=== PATIENT | male | born 1940 | race Caucasian/White ===

== ENCOUNTER 2016-09-15 08:04 | Inpatient (IN) ==
[2016-09-15] MEDS ORDERED: SODIUM CHLORIDE 0.9% 500 ML IV STA (09:11)
[2016-09-15] MEDS ORDERED: ONDANSETRON 4 MG/2 ML VIAL IV STA (09:11)
[2016-09-15 09:21] LABS: Basophils % 0.5 % (0.0-0.8); Eosinophils # 0.1 10*3/uL (0.0-0.87); Eosinophils % 1.6 % (0.00-10.9); Hematocrit 42.2 VOL% (42.0-52.0); Hemoglobin 13.8 GM/DL (14.0-18.0); Immature Granulocytes % 0.9 %; Immature Granulocytes Absolute 0.07 #; Lymphocytes # 1.1 10*3/uL (1.4-4.0); Lymphocytes % 14.2 % (21.2-54.2); Mean Corpuscular HGB Conc 32.7 GM/DL (32-36); Mean Corpuscular Hemoglobin 30 PG (27-34); Mean Corpuscular Volume 92.3 FL (87-102); Mean Platelet Volume 12.1 FL (9.6-12.0); Monocytes # 0.9 10*3/uL (0.11-0.8); Neutrophils # 5.6 10*3/uL (1.4-7.4); Neutrophils % 71.8 % (38.7-73.9); Platelet Count 137 T/CUMM (130-400); Red Blood Count 4.57 MC/CUMM (3.8-5.5); Red Cell Distribution Width 13.9 % (9.3-17.3); White Blood Count 7.7 T/CUMM (4-12)
--- NOTE | 2016-09-15 09:31 | XRay Report ---
Exam: XR chest 1V portable Date: 09/15/2016 9:12 AM Indication: Abdominal pain Comparison: 03/05/2013 Findings:: Mild cardiac prominence with sternotomy wires. ASVD is present. Underlying mild interstitial thickening present. No obvious effusions with a few reticular nodular densities. No pneumothorax Impression: 1. Interval sternotomy with compared to previous examination X line 2. Underlying COPD with mild fibrotic scarring and a few reticular nodular densities PROCEDURE INTERPRETED AT [facility] DEPARTMENT OF RADIOLOGY Final Report Signed by: Dr. Tian Gamino
[2016-09-15 09:32] LABS: Albumin 3.6 G/DL (3.4-5.0); Bilirubin,Total 1.7 MG/DL (0.2-1.0); Calcium 8.8 MG/DL (8.5-10.1); Magnesium 2.2 MG/DL (1.8-2.4); Osmolality,Calculated 290.5 MOS/KG (273-304); Potassium 4.3 MMOL/L (3.5-5.1); Total Protein 7.8 G/DL (6.4-8.3)
--- NOTE | 2016-09-15 09:34 | CT Report ---
CT abdomen pelvis Indication: Abdominal pain, pelvic pain Comparison: None available Technique: Axial CT imaging of the abdomen and pelvis is performed without contrast. Findings: Cardiac and lung bases are within normal limits CT abdomen: The gallbladder is been removed. There is Increased density in the left lobe of the liver not present on the previous exam with distal dilated biliary ducts. The size is estimated 1.7 cm although detail limited without contrast. Spleen pancreas and adrenal glands are normal in size and density. No evidence of focal lesion is demonstrated in these solid organs. Right kidney is better removed. A left kidney appears within normal limits of size. There is a calculus in the upper pole similar to previous exam.. No other evidence of hydronephrosis or nephrolithiasis is seen. The bowel caliber is normal and no wall thickening or adjacent inflammatory change is seen. No evidence of free fluid or free air is present. There is a ventral abdominal wall hernia that contains of nonobstructed loop of small bowel hernia size is slightly increased from previous exam, hernia size is slightly increased from previous study. CT pelvis: The bowel and bladder appear within normal limits. The pelvic organs show no evidence of abnormality Impression: Area of increased density with ill-defined borders in the left lobe of the liver with distal distended biliary ducts not present on previous exam and may indicate malignancy. Detail is limited without contrast but size of hyperdensity is estimated at 1.[address] exam was performed using one or more the following dose reduction techniques: Automated exposure control, adjustment of the MA and/or KV according to patient size, or use of iterative reconstruction technique. PROCEDURE INTERPRETED AT [facility] DEPARTMENT OF RADIOLOGY Final Report Signed by: Dr. Riley Farmer
[2016-09-15] MEDS ORDERED: ONDANSETRON 4 MG/2 ML VIAL ONE ×2 (09:56→11:32)
--- NOTE | 2016-09-15 10:03 | Emergency Department Note ---
Samantha Escalona Hilary, am scribing for, and in the presence of, Nickolas Velasco MD 09:17. Krista Escalona Phillip K, MD, personally performed the services described in this documentation, ascribed by Wilda Singh in my presence, and it is both accurate and complete . Arrival - Arrival Chief Complaint: Abdominal / Flank Pain Stated Complaint: did not state ED Nursing Triage Note: Pt states that he has been having abd pain x 1 month with worsening this am - pt was dx with hernia and had hernia repair surgery years ago - Mode of Arrival: Wheelchair Limitations: No Limitations Source: Patient, RN Notes Reviewed Time Seen by Provider: 09/15/16 09:03 - History of Present Illness HPI Narrative: Pt is a 76 y/o male presenting to the ED with c/o abdominal pain which onset a month ago but worsened this AM. Pt confirms generalized abdominal pain, cough, vomiting, and that the pain worsens with movement but denies fever. Pt states his last BM was yesterday and that he has a small hernia over his navel. Pt has no other complaints or problems stated in the ED. Pt has a PMHx of HTN, Heart surgery, CVA, IDDM, Dyslipidemia, and a hernia repair. Onset (ago): month(s) Allergies/Adverse Reactions: Allergies Allergy/AdvReac Type Severity Reaction Status Date / Time No Known Allergies Allergy Unverified 09/15/16 08:27 Review of System - Review of System 12 point system: reviewed and no additional remarkable complaints except as stated - Review of System Constitutional: Absent: fever Respiratory: Present: cough Cardiovascular: Absent: chest pain Gastrointestinal: Present: abdominal pain, vomiting. Absent: nausea Medical,Surgical,& Family Hx - Medical History Cardio: History of: Hypertension, Cardiovascular Problems (heart surgery) Neurology: History of: Cerebrovascular Accident Endocrine: History of: Diabetes Mellitus (IDDM), Dyslipidemia Gastrointestinal: History of: GI Problems (hernia repair) Other: History of: Miscellaneous Medical Problems (chronic pain) - Social History Smoking Status: Never smoker Frequency of Alcohol Use: None Type of Drug Use: None Exam Vital Signs: Vital Signs Temperature 98.1 F 09/15/16 08:39 Pulse Rate 53 L 09/15/16 09:13 Respiratory Rate 16 09/15/16 09:13 Blood Pressure 147/71 09/15/16 09:13 O2 Sat by Pulse Oximetry 95 09/15/16 09:13 - General General appearance: alert, in no apparent distress - Head Head exam: Present: atraumatic, normocephalic - Eye Eye exam: Present: normal appearance, PERRL, EOMI - ENT ENT exam: Present: mucous membranes moist, TM's normal bilaterally. Absent: mucous membranes dry - Neck Neck exam: Present: full ROM, trachea midline. Absent: tenderness - Chest Chest inspection: Present: symmetric chest wall rise. Absent: tenderness - Respiratory Respiratory exam: Present: normal lung sounds bilaterally. Absent: respiratory distress - Cardiovascular Cardiovascular exam: Present: regular rate, murmur (3/6 systolic ejection murmur ) - Abdominal Exam Abdominal exam: Present: distention, rebound, diminished bowel sounds (No bowel sounds), hernia (ventral hernia, reducable) - Extremities Exam Extremities exam: Present: full ROM. Absent: tenderness - Back Exam Back exam: Present: full ROM. Absent: tenderness - Neurological Exam Neurological exam: Present: alert, oriented X3, CN II-XII intact. Absent: motor sensory deficit - Psychiatric Psychiatric exam: Present: normal affect, normal mood - Skin Skin exam: Present: warm, dry, intact, normal color. Absent: rash Course Course Narrative: Patient discussed with the hospitalist. Results - Labs CBC & BMP: 09/15/16 08:49 09/15/16 08:49 Lab Results: I have reviewed the patients labs Labs: Laboratory Tests 09/15/16 08:49 WBC 7.7 RBC 4.57 Hgb 13.8 L Hct 42.2 MPV 12.1 H Lymph % (Auto) 14.2 L Lymph # (Auto) 1.1 L Andrew # (Auto) 0.9 H Laboratory Tests 09/15/16 08:49 BUN 34 H Creatinine 2.30 H Glucose 212 H Total Bilirubin 1.70 H AST 229 H ALT 219 H Globulin 4.2 H Albumin/Globulin Ratio 0.8 L Laboratory Tests 09/15/16 08:49 Urine Urobilinogen < 2.0 H - EKG EKG results: interpreted by BRENDON, sinus rhythm (nonspecific ST-T changes) - Diagnostic Findings Procedure: Chest x-ray: report reviewed by me (1. Interval sternotomy with compared to previous examination X line. 2. Underlying COPD with mild fibrotic scarring and a few reticular nodular densities. ), CT Abdomen and Pelvis: report reviewed by me (Area of increased density with ill-defined borders in the left lobe of the liver with distal distended biliary ducts not present on previous exam and may indicate malignancy. Detail is limited without contrast but size of hyperdensity is estimated at 1.7 cm. ) Disposition Clinical Impression: Liver mass, left lobe, Elevated liver enzymes, Abdominal pain, ventral hernia reducible, History of renal cell carcinoma Case discussed with: patient, patient's family Disposition: Still a Patient Condition: Guarded Additional Instructions: Admitted to the hospitalist for further workup.
--- NOTE | 2016-09-15 10:03 | EKG Report ---
Stationary ECG Study [facility] ER Test Date: 09/15/2016 10:01:19 AM Pat Name: EKATERINA DELGADO Department: Room: Gender: M Vending Machine Servicer: WANG : 1940 Requested by: Nickolas Blandon Order Number: [id number] Reading MD: CAROLINE SIERRA Intervals [place] Rate: 56 P: -54 VA: 250 QRS: -11 QRSD: 84 T: 86 QT: 422 QTc: 415 Interpretive Statements SINUS RHYTHM WITH PROLONGED VA INTERVAL NONSPECIFIC T-WAVE ABNORMALITY Electronically Signed On 09-19-16 11:50:19 CDT by CAROLINE SIERRA [email or web address]
--- NOTE | 2016-09-15 10:41 | Hospitalist History & Physical ---
Addendum entered and electronically signed by Pierce Davis CNP 09/15/16 11 :18: HPI This is a 76 year old male that presented to the ED this morning with a chief complaint of abdominal pain, nausea and vomiting. He has a rather impressive medical history of renal cell carcinoma, hypertension, coronary artery disease, diabetes mellitus, dyslipidemia, and chronic pain. He has a surgical history of heart surgery, left nephrectomy, and hernia repair. He reports the onset of abdominal pain "a couple of days ago". He reports the start of nausea and vomiting on yesterday. He states"It got worse through the night'. The abdominal pain became almost unbearable this morning, so he sought medical attention. At the time of ED presentation, he was continuing to experience abdominal pain with guarding and tenderness noted upon gentle palpation. CT of the abdomen was obtained and suggest billiary duct dilation and detected the presence of a left lobe liver mass. Labs obtained elevations in liver function with AST of 229, ALT of 219, and Alkaline phosphate of 112. His renal function was impaired with a BUN of 34 and creatinine of 2.30. After brief discussion with both Dr. Velasco and Dr. Gil, the patient will be admitted under the hospitalist services for continuation of care. We will consult GI to evaluate and assist with management. Original Note: <Pierce Davis - Last Filed: 09/15/16 10:56> Assessment and Plan (1) Abdominal pain Status: Acute Assessment and plan: We will admit, empiric antibiotics,gently rehydrate, and control pain. Will consult GI to evaluate. Current Visit: Yes Qualifiers: Abdominal location: unspecified location Qualified Code(s): R10.9 - Unspecified abdominal pain (2) Elevated liver enzymes Status: Acute Assessment and plan: CT of abdomen showed bililary ducts dilation and left lobe liver mass. Will will consult GI to evaluate. Current Visit: Yes (3) Liver mass, left lobe Status: Acute Assessment and plan: CT of abdomen showed bililary ducts dilation and left lobe liver mass. Will will consult GI to evaluate. Current Visit: Yes History of Present Illness Chief complaint: abdominal pain; nausea and vomiting History of present illness: Mr. Carr is a 76 year old male Allergies Allergy/AdvReac Type Severity Reaction Status Date / Time No Known Allergies Allergy Unverified 09/15/16 08:27 Medical,Surgical,& Family Hx - Medical History Cardio: History of: Hypertension, Cardiovascular Problems (heart surgery) Neurology: History of: Cerebrovascular Accident Endocrine: History of: Diabetes Mellitus (IDDM), Dyslipidemia Gastrointestinal: History of: GI Problems (hernia repair) Other: History of: Miscellaneous Medical Problems (chronic pain) - Social History Smoking Status: Never smoker Have you smoked in the last 12 months: No Frequency of Alcohol Use: None Type of Drug Use: None Marital Status: Single Lives With:: Alone Functional capacity: independent ambulation Exam - Constitutional Vitals: Period Temp Pulse Resp BP Sys/Reyes Pulse Ox Last 24 Hr 98.1 F-98.1 F 51-54 16-20 134-152/59-71 94-97 General appearance: normal weight, mild distress - Head Head exam: Present: normal inspection, normocephalic, atraumatic - Eye Eye exam: Present: EOMI, conjunctival injection Pupils: Present: NELY, normal accommodation - ENT ENT exam: Present: normal exam, normal external ear exam, normal oropharynx - Neck Neck exam: Present: normal inspection. Absent: lymphadenopathy, meningismus, tenderness, thyromegaly - Respiratory Respiratory exam: Present: clear to auscultation bilaterally. Absent: rales, rhonchi, stridor, wheezes - Cardiovascular Cardiovascular exam: Present: bradycardia. Absent: carotid bruit, diastolic murmur, gallop, JVD, rubs, systolic murmur - GI/Abdominal GI/Abdominal exam: Present: guarding, hernia, tenderness, rebound - Extremities Exam Extremities exam: Present: normal inspection, normal capillary refill, full ROM. Absent: edema - Back Exam Back exam: Present: normal inspection - Neurological Exam Neurological exam: Present: alert, oriented X3, CN II-XII intact - Psychiatric Psychiatric exam: Present: normal affect, normal mood - Skin Skin exam: Present: normal color, warm, dry Results - Labs CBC & BMP: 09/15/16 08:49 09/15/16 08:49 Lab Results: I have reviewed the past 24 hour labs Quality Measures - VTE Deep Vein Thrombosis/Pulmonary Embolism Present on Admission: No <Ady Gil - Last Filed: 09/15/16 16:32> History of Present Illness History of present illness: Patient seen and examined along with CALLY Davis, todd with history, assessment and plan as documented. Patient also with FRED (unknown baseline), hydrating gently, pt takes bumex outpatient. Also with history of DM, SSI for now. GI consulted, possible liver biopsy tomorrow. Exam - Constitutional Vitals: Period Temp Pulse Resp BP Sys/Reyes Pulse Ox Last 24 Hr 52-59 16-19 159-164/63-94 94-98 Results - Labs CBC & BMP: 09/15/16 08:49 09/15/16 08:49
[2016-09-15 10:49] LABS: Apearance,Urine CLEAR (Clear); Bacteria,Urine Occasional /HPF (Few); Bilirubin,Urine Negative (Negative); Blood, Urine Negative (Negative); Glucose,Urine (UA) 50 mg/dL (Negative); Ketones,Urine Negative (Negative); Nitrite,Urine Negative (Negative); Protein,Urine 100 MG/DL; RBC,Urine 1 /HPF (0-4); Squamous Epithelial Cell,Urine Occasional /HPF (0-10); Urine Color Yellow (Yellow); Urine Specific Gravity 1.011 (1.001-1.035); Urine Urobilinogen < 2.0 EU/DL (0.2-1.0); WBC,Urine 2 /HPF (0-6)
[2016-09-15] MEDS ORDERED: MORPHINE 2 MG/1 ML SYRINGE IV SCH (11:00)
[2016-09-15] MEDS ORDERED: MORPHINE 2 MG/1 ML SYRINGE ONE (11:20)
[2016-09-15] MEDS ORDERED: metroNIDAZOLE 500 MG/100 ML PREMIX IV ONE (11:21)
[2016-09-15] MEDS: ONDANSETRON 4 MG/2 ML VIAL IV SCH ×3 (11:35→22:37)
[2016-09-15] MEDS: metroNIDAZOLE INJ 500 MG in PREMIX 1 EACH IV SCH ×2 (13:48→19:48)
[2016-09-15] MEDS ORDERED: MORPHINE 2 MG/1 ML SYRINGE IM PRN (13:55)
--- NOTE | 2016-09-15 14:03 | Gastrointestinal Consult Note ---
<Cony Estrella - Last Filed: 09/15/16 13:58> Assessment and Plan (1) Liver mass, left lobe Status: Acute Assessment and plan: 09/15-2-3 week history of generalized abdominal pain worsening in severity and last night associated with nausea and vomiting. Findings on CT scan of approximately 1.7 cm density to the left lobe of the liver. Elevated LFTs. Consult interventional radiology for possible liver biopsy tomorrow. Plan an addendum to follow by Dr. Lay. Current Visit: Yes History of Present Illness Chief complaint: Abdominal pain History of present illness: Mr. Carr is a 76 year old male who presented to the hospital with abdominal pain, nausea vomiting. Patient's son is at bedside and provides much of his history due to patient's severity of pain during visit. Patient is reported to have onset of upper abdominal pain over the last 2-3 weeks. The pain has come and gone here recently and was not associated with any other symptoms. The pain was not precipitated by any known factors as well. The pain began to worsen last night and throughout the night became more severe. Patient also had onset of nausea and vomiting since yesterday afternoon with the pain. Patient states he has never had pain like this in the past. He denies any hematemesis or coffee-ground emesis associated with this. He states he had a normal bowel movement on yesterday denying any melena or hematochezia. He has a prior history of heart surgery, left nephrectomy related to renal cell carcinoma and has had a hernia repair in the past. Patient's renal cell carcinoma was several years ago when he did not have any adjuvant therapy following his nephrectomy. Denies any history of smoking or drinking in the past. He denies any recent weight loss, fever, chills, or night sweats. On admission he was found to have mildly elevated LFTs with bilirubin 1.7, AST 229 , ALT 219. He had a CT of the abdomen without contrast that showed increased density with ill-defined borders of the left lobe of the liver with distal distended biliary ducts with limited detail with an estimation of 1.7 cm in size. Also mention of his ventral abdominal wall hernia which contains a nonobstructed loop of small bowel. No other acute findings noted. Home Medications Medication Instructions Recorded Confirmed Type Amlodipine Besylate 10 mg PO DAILY 09/15/16 09/15/16 History Aspirin EC Tab 81 mg PO DAILY 09/15/16 09/15/16 History Atorvastatin Calcium 20 mg PO DAILY 09/15/16 09/15/16 History Bumetanide Tab [Bumex Tab] 1 mg PO DAILY 09/15/16 09/15/16 History Insulin Aspart Prot/Asp 70/30 70 units SUBCUT QPM 09/15/16 09/15/16 History [NovoLOG Mix 70/30] Insulin Aspart Prot/Asp 70/30 80 unit SUBCUT QAM 09/15/16 09/15/16 History [NovoLOG Mix 70/30] Menthol. 25%/Tac 0.025% 1 applic TOP BID PRN 09/15/16 09/15/16 History Metoprolol Tartrate 25 mg PO BID 09/15/16 09/15/16 History Omeprazole [Prilosec] 20 mg PO BIDAC 09/15/16 09/15/16 History Thiamine HCl 100 mg PO DAILY 09/15/16 09/15/16 History Triamcinolone Acetonide 1 applic TOP BID 09/15/16 09/15/16 History [Triamcinolone 0.1% Cream] Allergies Allergy/AdvReac Type Severity Reaction Status Date / Time No Known Allergies Allergy Unverified 09/15/16 08:27 Medical,Surgical,& Family Hx - Medical History Cardio: History of: Hypertension, Cardiovascular Problems (heart surgery) Neurology: History of: Cerebrovascular Accident Endocrine: History of: Diabetes Mellitus (IDDM), Dyslipidemia Gastrointestinal: History of: GI Problems (hernia repair) Other: History of: Miscellaneous Medical Problems (chronic pain) - Social History Smoking Status: Never smoker Frequency of Alcohol Use: None Type of Drug Use: None 12 point system: reviewed and no additional remarkable complaints except as stated - Constitutional Constitutional: Present: as per HPI - EENT Eyes: Present: as per HPI Ears: Present: as per HPI Nose, mouth and throat: Present: as per HPI - Cardiovascular Cardiovascular: Present: as per HPI - Respiratory Respiratory: Present: as per HPI - Gastrointestinal Gastrointestinal: Present: as per HPI, abdominal pain, nausea, vomiting - Genitourinary Genitourinary: Present: as per HPI - Musculoskeletal Musculoskeletal: Present: as per HPI - Neurological Neurological: Present: as per HPI - Psychiatric Psychiatric: Present: as per HPI - Endocrine Endocrine: Present: as per HPI - Hematologic/Lymphatic Hematologic/Lymphatic: Present: as per HPI Exam - Constitutional Vitals: Period Temp Pulse Resp BP Sys/Reyes Pulse Ox Last 24 Hr 52-59 16-19 159-164/63-94 94-98 General appearance: normal weight, no acute distress - Head Head exam: Present: normal inspection, normocephalic - Eye Eye exam: Present: other (Lids and conjunctive are unremarkable). Absent: scleral icterus - ENT ENT exam: Present: normal exam, normal oropharynx - Neck Neck exam: Present: normal inspection - Respiratory Respiratory exam: Present: clear to auscultation bilaterally. Absent: rales, rhonchi, wheezes - Cardiovascular Cardiovascular exam: Present: regular rate and rhythm. Absent: diastolic murmur , JVD, systolic murmur - GI/Abdominal GI/Abdominal exam: Present: hypoactive bowel sounds, tenderness, soft, other ( Ventral hernia). Absent: ascites, distended, mass, organomegaly - Extremities Exam Extremities exam: Present: normal inspection, full ROM - Back Exam Back exam: Present: normal inspection - Neurological Exam Neurological exam: Present: alert, oriented X3 - Psychiatric Psychiatric exam: Present: normal affect, normal mood - Skin Skin exam: Present: normal color, warm, dry Results - Labs CBC & BMP: 09/15/16 08:49 09/15/16 08:49 Lab Results: I have reviewed the past 24 hour labs - Diagnostic Findings Procedure: CT Abdomen and Pelvis: report reviewed by me Quality Measures - VTE Deep Vein Thrombosis/Pulmonary Embolism Present on Admission: No <Manuel Lay - Last Filed: 09/15/16 18:36> History of Present Illness History of present illness: Mr. Carr is a 76 year old male Exam - Constitutional Vitals: Period Temp Pulse Resp BP Sys/Reyes Pulse Ox Last 24 Hr 98.4 F 52-83 16-20 123-164/58-94 94-98 Results - Labs CBC & BMP: 09/15/16 08:49 09/15/16 08:49
[2016-09-15] MEDS: SODIUM CHLORIDE 0.9% 1,000 ML IV SCH (15:05)
[2016-09-15] MEDS: PIPERACILLIN/TAZOBACTAM 3,375 MG in SODIUM CHLORIDE 0.9% 100 ML IV SCH ×2 (15:06→22:38)
[2016-09-15] MEDS ORDERED: DEXTROSE 50% 25 GM/50 ML VIAL IV PRN (15:29)
[2016-09-15] MEDS ORDERED: GLUCAGON 1 MG VIAL IM PRN (15:29)
[2016-09-15 15:37] LABS: PT Patient Result 10.6 SECS
[2016-09-15] MEDS: INSULIN LISPRO 100 UNIT/ML SUBCUT SCH ×2 (17:57→20:36)
[2016-09-15] MEDS: MORPHINE 2 MG/1 ML SYRINGE IV PRN (19:45)
[2016-09-16] MEDS: MORPHINE 2 MG/1 ML SYRINGE IV PRN ×2 (00:29→13:31)
[2016-09-16] MEDS: metroNIDAZOLE INJ 500 MG in PREMIX 1 EACH IV SCH ×3 (03:47→14:57)
[2016-09-16] MEDS: SODIUM CHLORIDE 0.9% 1,000 ML IV SCH (03:47)
[2016-09-16 04:25] LABS: Basophils % 0.3 % (0.0-0.8); Hematocrit 41.4 VOL% (42.0-52.0); Hemoglobin 13.2 GM/DL (14.0-18.0); Immature Granulocytes % 0.9 %; Immature Granulocytes Absolute 0.07 #; Lymphocytes # 0.9 10*3/uL (1.4-4.0); Lymphocytes % 11.5 % (21.2-54.2); Mean Corpuscular HGB Conc 31.9 GM/DL (32-36); Mean Corpuscular Hemoglobin 30 PG (27-34); Mean Corpuscular Volume 92.8 FL (87-102); Mean Platelet Volume 11.9 FL (9.6-12.0); Monocytes # 1.1 10*3/uL (0.11-0.8); Monocytes % 13.4 % (1.7-12.7); Neutrophils # 5.9 10*3/uL (1.4-7.4); Neutrophils % 73.9 % (38.7-73.9); Platelet Count 131 T/CUMM (130-400); Red Blood Count 4.46 MC/CUMM (3.8-5.5); Red Cell Distribution Width 14.1 % (9.3-17.3); White Blood Count 7.9 T/CUMM (4-12)
[2016-09-16 05:05] LABS: Albumin 3.4 G/DL (3.4-5.0); Bilirubin,Indirect 1.1 MG/DL (0.0-1.0); Bilirubin,Total 4.1 MG/DL (0.2-1.0); Calcium 8.6 MG/DL (8.5-10.1); Magnesium 2.2 MG/DL (1.8-2.4); Osmolality,Calculated 294.1 MOS/KG (273-304); Potassium 4.4 MMOL/L (3.5-5.1); Total Protein 7.2 G/DL (6.4-8.3)
[2016-09-16] MEDS: PIPERACILLIN/TAZOBACTAM 3,375 MG in SODIUM CHLORIDE 0.9% 100 ML IV SCH (05:28)
[2016-09-16] MEDS: ONDANSETRON 4 MG/2 ML VIAL IV SCH ×2 (05:30→13:36)
[2016-09-16 07:21] LABS: AFP Tumor 3.3 NG/ML (0-8); Cancer Antigen 19-9 6.7 U/ML (0-37)
[2016-09-16] MEDS ORDERED: PANTOPRAZOLE 40 MG VIAL IV SCH (09:00)
--- NOTE | 2016-09-16 09:24 | History and Physical Update ---
Sedation H&P Update - Physical Exam Mental Status: alert and oriented Heart: regular rate and rhythm Lung: other (distant breath sounds barrell chest) Abdomen: within normal limits Vitals: within normal limits - Sedation Plan for Sedation: minimal Patient Consent: Procedure disscussed with patient and patinet has consented., Risks and benefits were discussed with patient,including infection,, bleeding, injury to surrounding structures, seizure, temporary nerve, Patient understands and accepts potential risks/benefits and agrees to ASA Class: II Airway Assessment: Class II: Soft palate, uvula, fauces visible
[2016-09-16] MEDS ORDERED: LIDOCAINE 2% 5 ML VIAL ONE (11:51)
--- NOTE | 2016-09-16 12:09 | History and Physical Update ---
History and Physical Update - Physical Exam Mental Status: alert and oriented Heart: regular rate and rhythm Lung: clear to auscultation Abdomen: within normal limits Vitals: within normal limits
--- NOTE | 2016-09-16 12:12 | Operative Note ---
Date of procedure: 09/16/16 Pre-op diagnosis: Abdominal pain with abnormal CT Procedure: EGD 76-year-old male admitted with abrupt onset of abdominal pain found to have a 2 cm left liver lobe mass. Pain seems out of proportion to what should be related to this and is now undergoing upper endoscopy for further evaluation. Informed consent was obtained from the patient He was sedated with MAC anesthesia per anesthesia protocol. Patient placed in left lateral decubitus position the Olympus flexible video upper endoscope was inserted into the oral cavity under direct vision the esophagus was intubated. Findings: Esophagus-normal esophageal mucosa no significant esophagitis, varices or Altamirano's were identified. Stomach-normal insufflation antral gastritis is seen no visible vessel no active bleeding. Remaining stomach is normal to direct retroflexed views of the body, fundus and cardia stomach. Pylorus-normal Duodenum-old blood present in the duodenum. We can manage to get a look at the ampulla there appears to be some blood extruding from the ampulla itself. No associated ulcer or mass lesions were identified. No other source for bleeding could be seen making it suspicious that his pain is been related to hemobilia. The procedure terminated placed our procedure well Postop diagnosis: 1. Gastritis-continue PPI treatment and observe 2. Hemobilia likely secondary to the liver mass. I have discussed further with interventional radiology he only has 1 kidney and significantly elevated creatinine makes it high risk to consider any type of vascular contrast studies. Source of his hemobilia remains most likely to be the liver mass and possibility of embolization and/or resection may need to be entertained and consideration of transferring the patient to a tertiary center for further evaluation is recommended. MRI may be of some benefit in terms of assessing this lesion but will not offer a different therapeutic modality. Will try to discuss with attending. Anesthesia: MAC Surgeon / Physician: Manuel Lay Estimated blood loss: none Specimens: none sent Condition: stable Disposition: post procedure unit Results - Labs CBC & BMP: 09/16/16 03:32 09/16/16 03:32 Discharge Plan - Discharge Medications No Action Atorvastatin Calcium 20 mg PO DAILY Triamcinolone Acetonide [Triamcinolone 0.1% Cream] 1 applic TOP BID Thiamine HCl 100 mg PO DAILY Omeprazole [Prilosec] 20 mg PO BIDAC Metoprolol Tartrate 25 mg PO BID Insulin Aspart Prot/Asp 70/30 [NovoLOG Mix 70/30] 80 unit SUBCUT QAM Bumetanide Tab [Bumex Tab] 1 mg PO DAILY Aspirin EC Tab 81 mg PO DAILY Amlodipine Besylate 10 mg PO DAILY Insulin Aspart Prot/Asp 70/30 [NovoLOG Mix 70/30] 70 units SUBCUT QPM Menthol. 25%/Tac 0.025% 1 applic TOP BID PRN PRN Reason: Skin Irritation - Follow Up or Referral - Forms/Instructions
--- NOTE | 2016-09-16 12:12 | Anesthesia Post-Op ---
Anesthesia Post OP - Post Ansesthetic Evaluation Patient seen in post op: Yes Resp: within normal limits CV: within normal limits Mental: within normal limits Temp: within normal limits Lmro-Sb-Antghidea: within normal limits Nausea and Vomiting: within normal limits Pain: within normal limits
[2016-09-16] MEDS: INSULIN LISPRO 100 UNIT/ML SUBCUT SCH ×2 (12:39→13:39)
[2016-09-16] MEDS ORDERED: PIPERACILLIN/TAZOBACTAM 3,375 MG in SODIUM CHLORIDE 0.9% 100 ML IV SCH (14:00)
[2016-09-16 16:22] VITALS: BP 161/74
--- NOTE | 2016-09-16 16:37 | Hospitalist Progress Note ---
Assessment and Plan - Time spent with patient Time spent with patient: Greater than 30 minutes (1) Hemobilia Status: Acute Current Visit: Yes (2) Liver mass, left lobe Status: Acute Current Visit: Yes (3) Elevated liver enzymes Status: Acute Current Visit: Yes (4) Abdominal pain Status: Acute Current Visit: Yes Qualifiers: Abdominal location: unspecified location Qualified Code(s): R10.9 - Unspecified abdominal pain (5) History of renal cell carcinoma Status: Acute Assessment and plan: Pain control Monitor H&H Initiate transfer process to [facility] (he has been accepted and we are now awaiting bed availability) hopefully he will be able to leave today [facility] for more definitive management For now, keep his current medication regimen and monitor. SCD hose for DVT prophylaxis Current Visit: Yes Hospitalist: Subjective Interval history: 76-year-old man was admitted yesterday for abdominal pain, nausea and vomiting. He has a background history of renal cell carcinoma status post nephrectomy, hypertension, coronary artery disease, diabetes, hyperlipidemia. During evaluation was found to have 2 cm mass in the right lobe of the liver suspected to be malignant mass. Gastroenterology was consulted, after gastroenterology evaluation and EGD which showed hemobilia due to bleeding from the max, gastroenterology recommended surgical resection as interventional radiology management with embolization would not be possible because he has a solitary kidney and currently in acute kidney injury and therefore will not be able to tolerate any contrast procedures. They have recommended transfer to tertiary center for higher level of care. I have discussed the case with patient's son and case management. Case management informs me that he has been accepted to [facility], awaiting bed availability. Exam - Constitutional Vitals: Period Temp Pulse Resp BP Sys/Reyes Pulse Ox Last 24 Hr 96.5 F-99.9 F 73-104 13-21 112-161/64-95 83-96 Exam: General appearance: normal weight, mild distress - Head Head exam: Present: normal inspection, normocephalic, atraumatic - Eye Eye exam: Present: EOMI, conjunctival injection Pupils: Present: NELY, normal accommodation - ENT ENT exam: Present: normal exam, normal external ear exam, normal oropharynx - Neck Neck exam: Present: normal inspection. Absent: lymphadenopathy, meningismus, tenderness, thyromegaly - Respiratory Respiratory exam: Present: clear to auscultation bilaterally. Absent: rales, rhonchi, stridor, wheezes - Cardiovascular Cardiovascular exam: Present: bradycardia. Absent: carotid bruit, diastolic murmur, gallop, JVD, rubs, systolic murmur - GI/Abdominal GI/Abdominal exam: Present: guarding, hernia, tenderness, rebound - Extremities Exam Extremities exam: Present: normal inspection, normal capillary refill, full ROM. Absent: edema - Back Exam Back exam: Present: normal inspection - Neurological Exam Neurological exam: Present: alert, oriented X3, CN II-XII intact - Psychiatric Psychiatric exam: Present: normal affect, normal mood - Skin Skin exam: Present: normal color, warm, dry Results - Labs CBC & BMP: 09/16/16 03:32 09/16/16 03:32 Lab Results: I have reviewed the past 24 hour labs Quality Measures - VTE Deep Vein Thrombosis/Pulmonary Embolism Present on Admission: No
--- NOTE | 2016-09-17 12:32 | Discharge Summary ---
Hospital Course - Hospital Course Hospital Course: 76-year-old man who was admitted for abdominal pain, nausea and vomiting. He has a background history of renal cell carcinoma status post nephrectomy, hypertension, coronary artery disease, diabetes, hyperlipidemia. During evaluation was found to have 2 cm mass in the right lobe of the liver suspected to be malignant mass. Gastroenterology was consulted, after gastroenterology evaluation an EGD which showed hemobilia due to bleeding from the mass, gastroenterology recommended surgical resection since he was not eligible for interventional radiology management with embolization because he has a solitary kidney and currently in acute kidney injury and therefore will not be able to tolerate any contrast procedures. They recommended transfer to tertiary center for higher level of care. Transferred to [facility] for higher level of care. - Time spent with patient Time with patient DS: Greater than 30 minutes Diagnosis - Discharge Diagnosis (1) Hemobilia Status: Acute (2) Liver mass, left lobe Status: Acute (3) Elevated liver enzymes Status: Acute (4) Abdominal pain Status: Acute (5) History of renal cell carcinoma Status: Acute Discharge Plan - Discharge Data Disposition: Disch/Xfer-[facility] - Discharge Medications Continue Atorvastatin Calcium 20 mg PO DAILY Triamcinolone Acetonide [Triamcinolone 0.1% Cream] 1 applic TOP BID Thiamine HCl 100 mg PO DAILY Omeprazole [Prilosec] 20 mg PO BIDAC Metoprolol Tartrate 25 mg PO BID Insulin Aspart Prot/Asp 70/30 [NovoLOG Mix 70/30] 80 unit SUBCUT QAM Bumetanide Tab [Bumex Tab] 1 mg PO DAILY Aspirin EC Tab 81 mg PO DAILY Amlodipine Besylate 10 mg PO DAILY Insulin Aspart Prot/Asp 70/30 [NovoLOG Mix 70/30] 70 units SUBCUT QPM Menthol. 25%/Tac 0.025% 1 applic TOP BID PRN PRN Reason: Skin Irritation - Follow Up or Referral - Forms/Instructions Exam - Constitutional Vitals: Period Temp Pulse Resp BP Sys/Reyes Pulse Ox Last 24 Hr 98.9 F 90-90 19-21 140-161/74-74 91-94 Exam: General appearance: normal weight, mild distress - Head Head exam: Present: normal inspection, normocephalic, atraumatic - Eye Eye exam: Present: EOMI, conjunctival injection Pupils: Present: NELY, normal accommodation - ENT ENT exam: Present: normal exam, normal external ear exam, normal oropharynx - Neck Neck exam: Present: normal inspection. Absent: lymphadenopathy, meningismus, tenderness, thyromegaly - Respiratory Respiratory exam: Present: clear to auscultation bilaterally. Absent: rales, rhonchi, stridor, wheezes - Cardiovascular Cardiovascular exam: Present: bradycardia. Absent: carotid bruit, diastolic murmur, gallop, JVD, rubs, systolic murmur - GI/Abdominal GI/Abdominal exam: Present: guarding, hernia, tenderness, rebound - Extremities Exam Extremities exam: Present: normal inspection, normal capillary refill, full ROM. Absent: edema - Back Exam Back exam: Present: normal inspection - Neurological Exam Neurological exam: Present: alert, oriented X3, CN II-XII intact - Psychiatric Psychiatric exam: Present: normal affect, normal mood - Skin Skin exam: Present: normal color, warm, dry Discharge Results Procedures and tests throughout hospitalization: Pending Orders 09/16/16 03:32 CEA, Pleural Fluid IN AM Labs on day of discharge: Labs from last 24 hours 09/16/16 13:35 POC Glucose 187 H DS: Provider Date of admission: 09/15/16 10:03 Primary care physician: . No PCP Attending physician on admission: Ady Gil MD Consults: 09/15/16 10:47 Consult to Physician [CONS] Routine Comment: Consulting Provider: Manuel Lay Consulting Provider Notified: Yes When should Consulting Provider be notified: Now Consult to Specialist Group: Gastroenterology When should Consulting Provider be notified: Now Person Notified: PIYUSH Date Notified: 09/15/16 Time Notified: 12:52 Discharging clinician: Buzz Alston MD
== END 2016-09-16 17:49 | disposition hospice, home (50) | DRG 442 ==
LOC: N.ED 08:04 → N.EDINP 10:03 → SUATTDRO 10:03 → N.EDINP 11:42 → N.4E 12:38
PROVIDERS: ADMIT Internal Medicine; ATTEND Internal Medicine